=== PATIENT | female | born 1985 | race Caucasian/White ===

== ENCOUNTER 2018-12-26 12:38 | Emergency (ER) | payer SELFPAY ==
[~2018-12-26] VITALS: Ht 175.3 cm; Wt 100.5 kg
[2018-12-26 12:42] VITALS: Ht 175.3 cm; Wt 100.5 kg
[2018-12-26 13:26] LABS: BASOPHIL % 1.2 % (0-2); PLATELET COUNT 301 x10^3mcL (130-400); RED CELL DISTRIBUTION WIDTH 14.1 % (11.5-14.5)
[2018-12-26 13:46] LABS: CALCIUM 8.9 mg/dL (8.5-10.1); CARBON DIOXIDE 24.7 mmol/L (21-32); CHLORIDE SERUM 105 mmol/L (98-107); CREATININE SERUM 0.8 mg/dL (0.6-1.0); GFR1 > 60 mL/min; GLUCOSE SERUM 108 mg/dL (74-106); POTASSIUM SERUM 3.8 mmol/L (3.5-5.1); SODIUM SERUM 140 mmol/L (136-145)
[2018-12-26 13:50] LABS: ALBUMIN 3.6 g/dL (3.4-5.0); ALKALINE PHOSPHATASE 69 U/L (46-116); ALT/SGPT 71 U/L (14-59); AMYLASE 27 U/L (25-115); AST/SGOT 30 U/L (15-37); BILIRUBIN TOTAL 0.5 mg/dL (0.20-1.00); LIPASE 74 IU/L (73-393); TOTAL PROTEIN, SERUM 7.4 g/dL (6.4-8.2)
[2018-12-26 14:10] VITALS: BP 122/84
[2018-12-26 14:20] LABS: AMPHETAMINE QUAL UR NONE DETECTED (See below)
== END 2018-12-26 15:30 | disposition home or self-care (01) ==
LOC: ED 12:38
PROVIDERS: Emergency Medicine
DX: R07.89 Other chest pain (principal); R31.9 Hematuria, unspecified; R10.12 Left upper quadrant pain; R10.32 Left lower quadrant pain
CPT/HCPCS: 36415; Q0092